=== PATIENT | male | born 1970 | race Hispanic/Latino ===

== ENCOUNTER 2018-03-07 09:42 | Day surgery (SDC) | payer BC ==
[2018-03-01 13:07] VITALS: BMI 45.1
[2018-03-07] MEDS ORDERED: Lidocaine 2% Inj (20ml) ONE (11:53)
[2018-03-07] MEDS ORDERED: Propofol 10 mg/ml Inj (20 ML) ONE ×2 (11:53→12:11)
[2018-03-07] MEDS ORDERED: Sodium Chloride 0.9% 1,000 ML IV SCH (12:15)
[2018-03-07 13:00] VITALS: PULSE 80
[2018-03-07 13:41] VITALS: BP 122/62; RESP 16; TEMP 98.5; O2SAT 98
== END 2018-03-07 14:08 | disposition home or self-care (01) ==
LOC: ENDO 09:42
PROVIDERS: ATTEND Internal Medicine
DX: K21.0 Gastro-esophageal reflux disease with esophagitis (principal); K52.9 Noninfective gastroenteritis and colitis, unspecified; K44.9 Diaphragmatic hernia without obstruction or gangrene; K63.5 Polyp of colon; K64.8 Other hemorrhoids; K29.50 Unspecified chronic gastritis without bleeding; E11.9 Type 2 diabetes mellitus without complications; E78.5 Hyperlipidemia, unspecified
CPT/HCPCS: 43239; 45380; 45381; 45385; 82948; 88305; 88312; 88342; J2704; J7040 ×2